=== PATIENT | female | born 1995 | race Caucasian/White ===

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

== ENCOUNTER 2017-01-27 19:56 | Emergency (ER) | payer OTHER ==
--- NOTE | 2017-01-27 21:15 | ED ORDER SUMMARY ---
..... Patient: NICK PACK OrderSheet [facility] VisitID: [id number] [place] [address] 21y, F Registration Date/Time: 01/27/2017 ORDER SHEET Weight: 74.8 kg (stated) Allergies: No Known Drug Allergy GENERAL ORDERS: CBC w Diff Urgent (20:14 01/27/2017 HBivens A.R.N.P.) (20:18 JRomanelli R.N.) CMP Urgent (20:14 01/27/2017 HBivens A.R.N.P.) (20:18 JRomanelli R.N.) UA-Culture if indicated Urgent (20:14 01/27/2017 HBivens A.R.N.P.) (Ack 20:18 CHategekimana) (20:28 JRomanelli R.N.) Urine Drug Screen Urgent (20:14 01/27/2017 HBivens A.R.N.P.) (Ack 20:18 CHategekimana) (20:29 JRomanelli R.N.) Lipase Urgent (20:14 01/27/2017 HBivens A.R.N.P.) (20:18 JRomanelli R.N.) Amylase Urgent (20:14 01/27/2017 HBivens A.R.N.P.) (20:18 JRomanelli R.N.) Urine Urgent (21:16 01/27/2017 HBivens A.R.N.P.) (Cancelled: Other21:16 HBivens A.R.N.P.) MEDICATION ORDERS: Zofran ODT PO 4 mg (NOW) (21:25 01/27/2017 LauraQuivedavy R.N. verbal order read back to HBivens A.R.N.P.) (21:25 Ginivey R.N.) IV FLUIDS: IV Saline Lock (20:14 01/27/2017 HBivens A.R.N.P.) (20:17 JRomanelli R.N.) ORDER SHEET NOTES: [Electronically signed by Moise Paris R.N. (21:27 01/27/2017)] [Electronically signed by Estrella Herring (22:00 01/27/2017)] [Electronically locked/signed by Moise Paris R.N. (21:27 01/27/2017)]
--- NOTE | 2017-01-27 21:15 | ED CLINICAL REPORT ---
Clinical Report - Physicians/Mid Levels [facility] [address] [place] [address] 01/27/2017 19:57 Patient: NICK PACK Time Seen: 20:01; initial patient contact, initial documentation, patient care assumed. Arrived- By private vehicle. Historian- patient. HISTORY OF PRESENT ILLNESS Chief Complaint: ABDOMINAL PAIN. At its maximum, severity described as severe. When seen in the E.D., severity described as moderate. Modifying factors. Not worsened by anything. Not relieved by anything. It is described as "pain" and it is described as located in the right abdomen. This started about 3 months ago and is still present. It has been intermittent. The patient has had nausea. No loss of appetite, vomiting or diarrhea. (pt admits to not taking her abx like she should). No recent travel. Similar symptoms previously: Frequently, worse. Recent medical care: The patient was seen recently in a clinic. 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 REVIEW OF SYSTEMS No constipation, black stools, hematemesis, difficulty with urination or pain with urination. No urinary frequency, missed periods, bloody stools, fever or chest pain. No difficulty breathing. Denies current . All systems otherwise negative, except as recorded above. PAST HISTORY See nurses notes. PROBLEMS: Gastritis. Gastroenteritis. Immunizations. --20:14 Moise Dover R.N. Pelvic Inflammatory Disease [RuleOut]. Abdominal Pain [RuleOut]. --20:14 Moise Dover R.N. ADDITIONAL SURGERIES: Dental Surgery. --20:14 Moise Dover R.N. SOCIAL HISTORY Smoker - current status unknown. No alcohol use or drug use. No recent travel. Is a local resident. FAMILY HISTORY Negative. ADDITIONAL NOTES The nursing notes have been reviewed with agreement regarding the chief complaint, HPI, ROS, PMH and patient medications and allergies. PHYSICAL EXAM Vital Signs: 01/27/2017 20:03 BP: 127/82. HR: 111. RR: 16. O2 saturation: 99%. Temp: 98.6 F. Pain level now: 03/08. Have been reviewed as abnormal and appear to be correct. Blood pressure normal. Tachycardic. Respiratory rate normal. Temperature normal. Oxygen saturation normal. Appearance: Alert. Oriented X3. No acute distress. (pt smells strongly of marijuana, and pt appears high). Eyes: Pupils equal, round and reactive to light. Eyes normal inspection. Neck: Normal inspection. Neck supple. CVS: Normal heart rate and rhythm. Heart sounds normal. Pulses normal. Respiratory: No respiratory distress. Breath sounds normal. Chest nontender. Abdomen: Soft and nontender. Bowel sounds normal. No organomegaly. No mass. Back: Normal inspection. Skin: Skin warm and dry. Normal skin color. No rash. Normal skin turgor. Extremities: Extremities exhibit normal ROM. No lower extremity edema. Neuro: Oriented X 3. No motor deficit. No sensory deficit. LABS, X-RAYS, AND EKG Laboratory Tests: UA-Culture if indicated: (ZULEIKA: 01/27/2017 20:20) ( MsgRcvd 01/27/2017 20:39) Final results Test Result Flag Units (Reference) URINE COLOR YELLOW URINE APPEARANCE CLEAR URINE GLUCOSE NEGATIVE (NEGATIVE) URINE BILIRUBIN NEGATIVE (NEGATIVE) URINE KETONE 1+ (NEGATIVE) URINE SPECIFIC GRAVITY >= 1.030 (1.010-1.030) URINE PH 5.5 (5.0-8.0) URINE PROTEIN NEGATIVE (NEGATIVE) URINE UROBILINOGEN 0.2 EU/dL (0.2-1.0) URINE NITRITE NEGATIVE (NEGATIVE) URINE BLOOD NEGATIVE (NEGATIVE) URINE LEUK ESTERASE NEGATIVE (NEGATIVE) URINE RBC NONE SEEN rbc/hpf (0-1) URINE WBC NONE SEEN wbc/hpf (0-1) URINE EPITHELIAL CELLS 3-5 EPI/hpf (0-5) URINE BACTERIA FEW (1+) (NONE SEEN) URINE COMMENT CULT NOT INDICATED 0-1 HYALINE CAST. 1+ MUCOUS.URINE CULTURES ARE SET-UP BASED ON THE FOLLOWING CRITERIA:POSITIVE NITRITEPOSITIVE LEUKOCYTE ESTERASEGREATER THAN 10 WHITE BLOOD CELLSMODERATE (2+) OR GREATER BACTERIA CBC w Diff: (ZULEIKA: 01/27/2017 20:10) ( MsgRcvd 01/27/2017 20:22) Final results Test Result Flag Units (Reference) WHITE BLOOD COUNT 7.3 K/uL (4.5-11.5) RED BLOOD COUNT 4.69 M/uL (4.00-5.20) HEMOGLOBIN 14.3 gm/dL (12.0-16.0) HEMATOCRIT 42.2 % (36.0-46.0) MEAN CELL VOLUME 90 fL (80-100) MEAN CORPUSCULAR HGB 31 pg (26-34) MEAN CORPUSCULAR HGB CONC 34 g/dL (31-37) RED CELL DISTRIBUTION WIDTH 13.1 % (11.6-14.8) PLATELET COUNT 234 K/uL (150-400) NEUTROPHIL % 74.1 % (50-75) LYMPH % 17.9 L % (25-40) MONO % 6.9 % (3-14) EOSINOPHIL % 0.4 % (0-4) BASOPHIL % 0.7 % (0-2) Urine Drug Screen: (ZULEIKA: 01/27/2017 20:20) ( MsgRcvd 01/27/2017 21:05) Final results Test Result Flag Units (Reference) AMPHETAMINE/METHAMPHETAMINE NEGATIVE (NEGATIVE) BARBITURATE NEGATIVE (NEGATIVE) BENZODIAZEPINE NEGATIVE (NEGATIVE) CANNABINOID POSITIVE H (NEGATIVE) COCAINE NEGATIVE (NEGATIVE) ECSTASY NEGATIVE (NEGATIVE) METHADONE NEGATIVE (NEGATIVE) OPIATE NEGATIVE (NEGATIVE) The urine drug screen is a qualitative screening test fordrug overdose and abuse. All screen results should beconsidered as presumptive.Drugs screened for are as follows:BenzodiazepinesCocaineAmphetamines/MetamphetaminesTHC (Tetrahydrocannabinol)OpiatesBarbituratesEcstasyMethadonePositive results are unconfirmed. For confirmation, notifythe lab for the specimen to be sent to the reference lab.All confirmations must be performed by a differentmethodology.The ingestion of natural herbal and plant productscontaining Ephedra/Ephedra metabolites can produce in urineone or more substances capable of cross reacting withamphetamine/methamphetamine immunoassays. These testsprovide a preliminary result only. A more specificalternative chemical method must be used to obtain aconfirmed analytical result. CMP: (ZULEIKA: 01/27/2017 20:10) ( MsgRcvd 01/27/2017 20:35) Final results Test Result Flag Units (Reference) GLUCOSE 94 mg/dL (70-110) BUN 14 mg/dL (7-18) CREATININE 0.8 mg/dL (0.6-1.3) Estimated GFR >60 mL/min Estimated GFR- >60 mL/min Note: Persistent reduction over 3 months in eGFR<60 mL/min/1.73 m2 defines CKD. Patients with eGFR values>=60 mL/min/1.73 m2 may also have CKD if evidence ofpersistent proteinuria. Additional information may be foundat www.kidney.org. SODIUM 137 mmol/L (136-145) POTASSIUM 3.5 mmol/L (3.5-5.1) CHLORIDE 103 mmol/L (98-107) CARBON DIOXIDE 26 mmol/L (21-32) CALCIUM 9.5 mg/dL (8.5-10.1) TOTAL PROTEIN 7.7 g/dL (6.4-8.2) ALBUMIN 4.1 g/dL (3.3-5.0) BILIRUBIN, TOTAL 0.4 mg/dL (0.0-1.0) ALKALINE PHOSPHATASE 65 U/L (46-116) AST (SGOT) 16 U/L (15-37) ALT (SGPT) 19 U/L (12-78) LIPASE 98 U/L (73-393) AMYLASE 36 U/L (25-115) . PROGRESS AND PROCEDURES Course of Care: records from clinic reviewed, wet mount and gc done, ua and hcg pt asking for abx for pid, request denied, informing pt that I would let the clinic take care of that since they were the ones who did the pelvic exam, wet mount and gc cx, encouraged pt to f/u with them. Patient counseled in person regarding the patient's stable condition, test results and diagnosis. 21:09. Differential Diagnosis: I considered gastritis, gastroenteritis, peptic ulcer disease, gastroesophageal reflux disease, acute appendicitis, diverticulitis, colon cancer, ulcerative colitis, Crohn's disease, biliary colic, cholecystitis, cholelithiasis, hepatitis, pancreatitis, common bile duct obstruction, urinary tract infection, cystitis, ureterolithiasis, ovarian cyst, , pelvic inflammatory disease, pelvic abscess, endometriosis and viral syndrome as a possible cause of abdominal pain in this patient. This is a partial list of diagnoses considered. (substance abuse). Above considerations are based on history, physical exam, reassessment and laboratory data. Differential diagnosis was discussed with patient. Disposition: Discharged home in good and unchanged condition (21:15). Condition: good and stable. CLINICAL IMPRESSION Acute right upper quadrant and right lower quadrant abdominal pain of undetermined cause. Substance abuse- marijuana with intoxication. INSTRUCTIONS Warnings: Further evaluation is necessary in order to obtain test results. It is very important to follow up with a physician. GENERAL WARNINGS: Return or contact your physician immediately if your condition worsens or changes unexpectedly, if not improving as expected, or if other problems arise. SPECIFICALLY, return if you develop pain in the abdomen, fever, the inability to keep fluids down, blood in vomitus, blood in diarrhea, fainting or lightheadedness. Follow-up: Follow up with your doctor in about two days even if well. Call for an appointment. Summary of care provided to patient. Understanding of the discharge instructions verbalized by patient. (Electronically signed by Estrella Herring A.R.N.P. 01/27/2017 22:00)
--- NOTE | 2017-01-27 21:15 | ED ORDER SUMMARY ---
..... Patient: NICK PACK OrderSheet [facility] VisitID: [id number] [place] [address] 21y, F Registration Date/Time: 01/27/2017 ORDER SHEET Weight: 74.8 kg (stated) Allergies: No Known Drug Allergy GENERAL ORDERS: CBC w Diff Urgent (20:14 01/27/2017 HBivens A.R.N.P.) (20:18 JRomanelli R.N.) CMP Urgent (20:14 01/27/2017 HBivens A.R.N.P.) (20:18 JRomanelli R.N.) UA-Culture if indicated Urgent (20:14 01/27/2017 HBivens A.R.N.P.) (Ack 20:18 CHategekimana) (20:28 JRomanelli R.N.) Urine Drug Screen Urgent (20:14 01/27/2017 HBivens A.R.N.P.) (Ack 20:18 CHategekimana) (20:29 JRomanelli R.N.) Lipase Urgent (20:14 01/27/2017 HBivens A.R.N.P.) (20:18 JRomanelli R.N.) Amylase Urgent (20:14 01/27/2017 HBivens A.R.N.P.) (20:18 JRomanelli R.N.) Urine Urgent (21:16 01/27/2017 HBivens A.R.N.P.) (Cancelled: Other21:16 HBivens A.R.N.P.) MEDICATION ORDERS: Zofran ODT PO 4 mg (NOW) (21:25 01/27/2017 LauraQuivedavy R.N. verbal order read back to HBivens A.R.N.P.) (21:25 Ginivey R.N.) IV FLUIDS: IV Saline Lock (20:14 01/27/2017 HBivens A.R.N.P.) (20:17 JRomanelli R.N.) ORDER SHEET NOTES: [Electronically signed by Moise Paris R.N. (21:27 01/27/2017)] [Electronically signed by Estrella Herring (22:00 01/27/2017)] [Electronically locked/signed by Moise Paris R.N. (21:27 01/27/2017)]
--- NOTE | 2017-01-27 21:15 | ED NURSING NOTES ---
Clinical Report - Nurses [facility] [address] [place] [address] 01/27/2017 19:57 Patient: NICK PACK TRIAGE Triage time 20:Jan 27 2017. Acuity: LEVEL 3. Chief Complaint: ABDOMINAL PAIN and NAUSEA. Alert. NORMA COMA SCORE: [place] Coma Scale: 15- eyes open spontaneously (4); best verbal response- oriented x 4 (5); best motor response- obeys commands (6). --20:15 Moise Dover R.N. 20:03 01/27/17. BP: 127/82. HR: 111. RR: 16. O2 saturation: 99% on room air. Temp: 98.6 F. Pain level now: 6/10. Additional comments: RLQ. --20:15 Moise Dover R.N. Weight: 74.8 kg stated. Height/Length: 67 inches Per Patient. BMI: 25.9. Growth Chart Percentile: Weight: 90.3%. Height/Length: 85.5%. --20:10 Moise Dover R.N. Medications Doxycycline Calcium Oral 100mg, every 12 hours. --20:12 Moise Dover R.N. Ibuprofen Oral, as needed. --20:13 Moise Dover R.N. Allergies No Known Drug Allergy. --20:13 Moise Dover R.N. Medication/allergy information source: the patient. --20:15 Moise Dover R.N. History Arrived by private vehicle. Historian: patient. ( RLQ Abdominal pain. Seen today at [facility] and told to come here and be seen for a possible appendicitis. She has been having a PID for the last 2 1/2 months and only taking her antibiotics intermittently.). Onset. (about 2 1/2 months ago). She has had abdominal pain. The pain is described as located in the RLQ. Last oral intake by patient was (about 7 hours ago). Treatment ADMISSIONS CONSULTANT: None. PAST MEDICAL HX: Immunizations: status is unknown. Denies current : confirmed with urine test. SOCIAL HX: Former smoker, end date 12/2016. No alcohol use or drug use. No infectious disease exposure. No known contact with a sick individual. ABUSE ASSESSMENT: No report of abuse. FALL RISK ASSESSMENT: Fall risk assessment completed. No fall risk identified. NUTRITIONAL RISK ASSESSMENT: The nutritional risk assessment revealed no deficiencies. FUNCTIONAL ASSESSMENT: Functional assessment: no impairments noted. LEARNING NEEDS ASSESSMENT: The learning needs assessment revealed no barriers. SKIN INTEGRITY ASSESSMENT: Skin integrity risk assessment completed. No skin integrity risk identified. --20:15 Moise Dover R.N. PROBLEMS: Gastritis. Gastroenteritis. Immunizations. --20:14 Moise Dover R.N. Pelvic Inflammatory Disease [RuleOut]. Abdominal Pain [RuleOut]. --20:14 Moise Dover R.N. ADDITIONAL SURGERIES: Dental Surgery. --20:14 Moise Dover R.N. Interventions ID band on patient. To room. --20:15 Moise Dover R.N. PHYSICAL ASSESSMENT Ambulatory to room. GENERAL / NEURO / PSYCH: Alert. Oriented X 4. HEENT: Mucous membranes are pink. RESPIRATORY: Respirations not labored. CVS: Cardiac rhythm: sinus tachycardia. Capillary refill less than 2 seconds. GI / : Abdomen soft. Abdominal tenderness in the right lower quadrant. SKIN: Skin is warm and dry. --20:16 Moise Dover R.N. NURSING PROGRESS NOTES Patient gowned. Reassurance given to the patient. Patient identifiers checked. Call light placed in reach. Side rails up. Bed placed in lowest position. Brakes of bed on. Patient ready for evaluation- chart flagged and ED physician notified. --20:17 Moise Dover R.N. 20:07 01/27/2017 Site #1 started via IV in the left wrist with an 20g angiocath, with aseptic technique and good blood return; one attempt. Blood drawn: rainbow set. Labeled in the presence of the patient and sent to the lab. Saline lock flushed with 10 mL saline (start by DAVID Thorpe). --20:17 Moise Dover R.N. 20:23 01/27/17. Checked patient name, birthdate and medical record number: patient confirmed. Instructions provided to collect clean catch urine and patient verbalized understanding. Clean catch urine collected with return of yellow-colored lana-colored clear urine; odor is normal; sample sent to lab for urinalysis, culture and HCG. Specimen labeled in the presence of the patient. --20:23 Moise Dover R.N. 21:22 01/27/2017 Zofran ODT (Ondansetron) PO 4 mg given. Allergies verified and confirmed 5 rights. --21:25 Moise Paris R.N. 21:20. The patient is calm and resting quietly. SKIN: Skin is warm and dry. Skin color within normal limits. --21:27 Moise Paris R.N. DISPOSITION / DISCHARGE 21:13 01/27/2017 Site #1 removed upon discharge. Catheter intact. Bandage applied. --21:13 Moise Paris R.N. Departure time: 21:25. Condition at departure: stable. No learning barriers present. Discharge instructions provided and reviewed with the patient. Patient verbalized understanding. Written instructions provided in Irish. The patient was discharged home and accompanied by logistics engineer. She left the Emergency Department ambulatory and via private vehicle. Veterinary Pathologist driving. FALL RISK ASSESSMENT: Fall risk assessment completed. No fall risk identified. --21:25 Moise Paris R.N. 21:11 01/27/17. BP: 134/96. HR: 98. RR: 16. O2 saturation: 98% on room air. Pain level now: 10. --21:25 Moise Paris R.N. Locked/Released at 01/27/2017 21:27 by Moise Paris R.N.
--- NOTE | 2017-01-27 21:15 | ED NURSING NOTES ---
Clinical Report - Nurses [facility] [address] [place] [address] 01/27/2017 19:57 Patient: NICK PACK TRIAGE Triage time 20:Jan 27 2017. Acuity: LEVEL 3. Chief Complaint: ABDOMINAL PAIN and NAUSEA. Alert. NORMA COMA SCORE: [place] Coma Scale: 15- eyes open spontaneously (4); best verbal response- oriented x 4 (5); best motor response- obeys commands (6). --20:15 Moise Dover R.N. 20:03 01/27/17. BP: 127/82. HR: 111. RR: 16. O2 saturation: 99% on room air. Temp: 98.6 F. Pain level now: 6/10. Additional comments: RLQ. --20:15 Moise Dover R.N. Weight: 74.8 kg stated. Height/Length: 67 inches Per Patient. BMI: 25.9. Growth Chart Percentile: Weight: 90.3%. Height/Length: 85.5%. --20:10 Moise Dover R.N. Medications Doxycycline Calcium Oral 100mg, every 12 hours. --20:12 Moise Dover R.N. Ibuprofen Oral, as needed. --20:13 Moise Dover R.N. Allergies No Known Drug Allergy. --20:13 Moise Dover R.N. Medication/allergy information source: the patient. --20:15 Moise Dover R.N. History Arrived by private vehicle. Historian: patient. ( RLQ Abdominal pain. Seen today at [facility] and told to come here and be seen for a possible appendicitis. She has been having a PID for the last 2 1/2 months and only taking her antibiotics intermittently.). Onset. (about 2 1/2 months ago). She has had abdominal pain. The pain is described as located in the RLQ. Last oral intake by patient was (about 7 hours ago). Treatment BREAKDOWN MAN: None. PAST MEDICAL HX: Immunizations: status is unknown. Denies current : confirmed with urine test. SOCIAL HX: Former smoker, end date 12/2016. No alcohol use or drug use. No infectious disease exposure. No known contact with a sick individual. ABUSE ASSESSMENT: No report of abuse. FALL RISK ASSESSMENT: Fall risk assessment completed. No fall risk identified. NUTRITIONAL RISK ASSESSMENT: The nutritional risk assessment revealed no deficiencies. FUNCTIONAL ASSESSMENT: Functional assessment: no impairments noted. LEARNING NEEDS ASSESSMENT: The learning needs assessment revealed no barriers. SKIN INTEGRITY ASSESSMENT: Skin integrity risk assessment completed. No skin integrity risk identified. --20:15 Moise Dover R.N. PROBLEMS: Gastritis. Gastroenteritis. Immunizations. --20:14 Moise Dover R.N. Pelvic Inflammatory Disease [RuleOut]. Abdominal Pain [RuleOut]. --20:14 Moise Dover R.N. ADDITIONAL SURGERIES: Dental Surgery. --20:14 Moise Dover R.N. Interventions ID band on patient. To room. --20:15 Moise Dover R.N. PHYSICAL ASSESSMENT Ambulatory to room. GENERAL / NEURO / PSYCH: Alert. Oriented X 4. HEENT: Mucous membranes are pink. RESPIRATORY: Respirations not labored. CVS: Cardiac rhythm: sinus tachycardia. Capillary refill less than 2 seconds. GI / : Abdomen soft. Abdominal tenderness in the right lower quadrant. SKIN: Skin is warm and dry. --20:16 Moise Dover R.N. NURSING PROGRESS NOTES Patient gowned. Reassurance given to the patient. Patient identifiers checked. Call light placed in reach. Side rails up. Bed placed in lowest position. Brakes of bed on. Patient ready for evaluation- chart flagged and ED physician notified. --20:17 Moise Dover R.N. 20:07 01/27/2017 Site #1 started via IV in the left wrist with an 20g angiocath, with aseptic technique and good blood return; one attempt. Blood drawn: rainbow set. Labeled in the presence of the patient and sent to the lab. Saline lock flushed with 10 mL saline (start by DAVID Thorpe). --20:17 Moise Dover R.N. 20:23 01/27/17. Checked patient name, birthdate and medical record number: patient confirmed. Instructions provided to collect clean catch urine and patient verbalized understanding. Clean catch urine collected with return of yellow-colored lana-colored clear urine; odor is normal; sample sent to lab for urinalysis, culture and HCG. Specimen labeled in the presence of the patient. --20:23 Moise Dover R.N. 21:22 01/27/2017 Zofran ODT (Ondansetron) PO 4 mg given. Allergies verified and confirmed 5 rights. --21:25 Moise Paris R.N. 21:20. The patient is calm and resting quietly. SKIN: Skin is warm and dry. Skin color within normal limits. --21:27 Moise Paris R.N. DISPOSITION / DISCHARGE 21:13 01/27/2017 Site #1 removed upon discharge. Catheter intact. Bandage applied. --21:13 Moise Paris R.N. Departure time: 21:25. Condition at departure: stable. No learning barriers present. Discharge instructions provided and reviewed with the patient. Patient verbalized understanding. Written instructions provided in Yakut. The patient was discharged home and accompanied by supervisor ditching. She left the Emergency Department ambulatory and via private vehicle. Import/Export Clerk driving. FALL RISK ASSESSMENT: Fall risk assessment completed. No fall risk identified. --21:25 Moise Paris R.N. 21:11 01/27/17. BP: 134/96. HR: 98. RR: 16. O2 saturation: 98% on room air. Pain level now: 10. --21:25 Moise Paris R.N. Locked/Released at 01/27/2017 21:27 by Moise Paris R.N.
--- NOTE | 2017-01-27 22:01 | ED MAR SUMMARY ---
..... Medication Administration Record [facility] [address] [place] [address] Patient: NICK PACK Visit ID: [id number] 21y, F Weight: 74.8 kg Height/Length: 67 in BMI: 25.9 ALLERGIES: No Known Drug Allergy Given 21:22 01/27/2017 Moise Paris RNaunNNaun Medication Administered: ZOFRAN ODT [PO] (ONDANSETRON), Dose: 4 mg PO. Medication Ordered: Zofran ODT PO 4 mg (NOW).
--- NOTE | 2017-01-27 22:01 | ED MED RECONCILIATION SUMMARY ---
Patient: NICK PACK Medication Reconciliation Report [facility] VisitID: [id number] [address] [place] [address] 21y, F Registration Date/Time: 01/27/2017 Weight: 74.8 kg Height/Length: 67 in. BMI: 25.9 ALLERGIES: No Known Drug Allergy The patient's Home Medications are listed below: THE FOLLOWING MEDICATIONS NEED TO BE RECONCILED: Doxycycline Calcium Oral 100mg, every 12 hours Ibuprofen Oral The source(s) of the original Home Medication information: patient The following Medications were given to the patient in the Emergency Department: Zofran ODT [PO] PO 4 mg, administered: 01/27/2017 9:22:00 PM The following Medications were prescribed to the patient: None.
--- NOTE | 2017-01-27 22:01 | ED MED RECONCILIATION SUMMARY ---
Patient: NICK PACK Medication Reconciliation Report [facility] VisitID: [id number] [address] [place] [address] 21y, F Registration Date/Time: 01/27/2017 Weight: 74.8 kg Height/Length: 67 in. BMI: 25.9 ALLERGIES: No Known Drug Allergy The patient's Home Medications are listed below: THE FOLLOWING MEDICATIONS NEED TO BE RECONCILED: Doxycycline Calcium Oral 100mg, every 12 hours Ibuprofen Oral The source(s) of the original Home Medication information: patient The following Medications were given to the patient in the Emergency Department: Zofran ODT [PO] PO 4 mg, administered: 01/27/2017 9:22:00 PM The following Medications were prescribed to the patient: None.
--- NOTE | 2017-01-27 22:01 | ED DISCHARGE INSTRUCTIONS ---
Patient: NICK PACK General Instructions [facility] VisitID: [id number] [place] [address] 21y, F Registration Date/Time: 01/27/2017 Acute right upper quadrant and right lower quadrant abdominal pain of undetermined cause. Substance abuse- marijuana with intoxication. INSTRUCTIONS Warnings: Further evaluation is necessary in order to obtain test results. It is very important to follow up with a physician. GENERAL WARNINGS: Return or contact your physician immediately if your condition worsens or changes unexpectedly, if not improving as expected, or if other problems arise. SPECIFICALLY, return if you develop pain in the abdomen, fever, the inability to keep fluids down, blood in vomitus, blood in diarrhea, fainting or lightheadedness. Follow-up: Follow up with your doctor in about two days even if well. Call for an appointment. Summary of care provided to patient. Understanding of the discharge instructions verbalized by patient. ADDITIONAL INFORMATION Abdominal Pain, Unknown Cause (Female) The exact cause of your abdominal (stomach) pain is not certain. This does not mean that this is something to worry about, or the right tests were not done. Everyone likes to know the exact cause of the problem, but sometimes with abdominal pain, there is no clear-cut cause, and this could be a good thing. The good news is that your symptoms can be treated, and you will feel better. Your condition does not seem serious now; however, sometimes the signs of a serious problem may take more time to appear. For this reason,it is important for you to watch for any new symptoms, problems,or worsening of your condition. Over the next few days, the abdominal pain may come and go, or be continuous. Other common symptoms can include nausea and vomiting. Sometimes it can be difficult to tell if you feel nauseous, you may just feel bad and not associate that feeling with nausea. Constipation, diarrhea, and a fever may go along with the pain. The pain may continue even if treated correctly over the following days. Depending on how things go, sometimes the cause can become clear and may require further or different treatment. Additional evaluations, medications, or tests may be needed. Home care Your health care provider may prescribe medications for pain, symptoms, or an infection. Follow the health care provider's instructions for taking these medications. General care Rest until your next exam. No strenuous activities. Try to find positions that ease discomfort. A small pillow placed on the abdomen may help relieve pain. Something warm on your abdomen (such as a heating pad) may help, but be careful not to burn yourself. Diet Do not force yourself to eat, especially if having cramps, vomiting, or diarrhea. Water is important so you do not get dehydrated. Soup may also be good. Sports drinks may also help, especially if they are not too acidic. Make sure you don't drink sugary drinks as this can make things worse. Take liquids in small amounts. Do not guzzle them. Caffeine sometimes makes the pain and cramping worse. Avoid dairy products if you have vomiting or diarrhea. Don't eat large amounts at a time. Wait a few minutes between bites. Eat a diet low in fiber (called a low-residue diet). Foods allowed include refined breads, white rice, fruit and vegetable juices without pulp, tender meats. These foods will pass more easily through the intestine. Avoid whole-grain foods, whole fruits and vegetables, meats, seeds and nuts, fried or fatty foods, dairy, alcohol and spicy foods until your symptoms go away. Follow-up care Follow up with your health care provider as instructed, or if your pain does not begin to improve in the next 24 hours. When to seek medical care Seek prompt medical care if any of the following occur: Pain gets worse or moves to the right lower abdomen New or worsening vomiting or diarrhea Swelling of the abdomen Unable to pass stool for more than three days Fever of 100.4F (38C) or higher, or as directed by your healthcare provider. Blood in vomit or bowel movements (dark red or black color) Jaundice (yellow color of eyes and skin) Weakness, dizziness Chest, arm, back, neck or jaw pain Unexpected vaginal bleeding or missed period Call 911 Call emergency services if any of the following occur: Trouble breathing Confusion Fainting or loss of consciousness Rapid heart rate Seizure Abdominal Pain,Possible Appendicitis [Repeat Exam, Female] Based on your visit today, the exact cause of your abdominal (stomach) pain is not certain. However, you do have some of the early signs of APPENDICITIS. Early in an appendix infection the symptoms can be similar to a simple "stomach ache" or "stomach flu". Therefore, the diagnosis can be hard to make. Since an appendix infection is a serious condition, it is important to know if this is the cause of your symptoms. WAITING for more time to pass and repeating the exam is the best way to find out whether you have appendicitis. Within the next 12-24 hours the cause of your stomach pain should become clear. It is important for you to watch for any new symptoms or worsening of your condition. (See below). Home Care: Rest until your next exam. No strenuous activities. Eat a diet low in fiber (called a low-residue diet). Foods allowed include refined breads, white rice, fruit and vegetable juices without pulp, tender meats. These foods will pass more easily through the intestine. Avoid whole-grain foods, whole fruits and vegetables, meats, seeds and nuts, fried or fatty foods, dairy, alcohol and spicy foods until your symptoms go away. In some cases, you may be asked not to eat or drink anything until you are re-examined. Return for another exam exactly as directed. Follow Up with your doctor or this facility as directed. Get Prompt Medical Attention if any of the following occur: Pain gets worse or moves to the right lower abdomen New or worsening vomiting or diarrhea Swelling of the abdomen Unable to pass stool for more than three days Fever of 100.4F (38C) or higher, or as directed by your healthcare provider Blood in vomit or bowel movements (dark red or black color) Weakness, dizziness or fainting Unexpected vaginal bleeding Marijuana Abuse Marijuana is the most widely used illegal drug in the [place]. It is called by various names such as pot, weed, blunts, grass, reefer, ganja, hash, hashish. It is usually smoked but can be mixed with foods or brewed as a tea. It is sometimes sold with PCP (Rodney Dust) or amphetamine mixed in it. These drugs can cause other harmful side effects. Marijuana can cause the following effects: Changes in mood (stimulated, happy, drowsy, depressed, paranoid) Hallucinations Increased heart rate and blood pressure Increased appetite Time distortion, difficulty concentrating, impaired memory Lung damage (similar to cigarettes with chronic cough, wheezing, frequent colds and bronchitis) You can become psychologically dependent on marijuana. That means the craving to use the drug is emotional or psychological rather than due to physical withdrawal. Is Marijuana Running Your Life? Here are some of the signs: Relying on marijuana to feel good, forget problems, deal with stress or to relax Wanting to be alone most of the time or only with others who use drugs Losing interest in things that used to be important Changes in school or job performance or attendance Spending a lot of time thinking about how to get marijuana Stealing or selling your things so you can buy marijuana Unable to stop using even though you may want to quit Increasing anxiety, anger,or depression Sleeping too much, changes in eating habits (weight loss or gain) Needing to use more to get the same effect Home Care Once you have become addicted to any drug, quitting is hard to do. Most people find they can't quit without help. So, dont try to do this alone. Talk to someone you trust who can support you. Seek professional help. Avoid people and places where drugs are used. That only increases the temptation to use. Follow Up with your doctor or as advised by our staff. For more information or a referral to a treatment center in your area, contact: Your local mental health center or the National Alcohol and Substance Abuse Information Center (976)-601-5323 www.addictioncareoptions.com National [place] on Alcoholism and Drug Dependence 611-825-CFUV www.ncadd.org Marijuana Anonymous 007-815-9804 www.marijuana-anonymous.org Get Prompt Medical Attention if any of the following occur: You feel extreme depression, fear, anxiety, or anger toward yourself or others You feel out of control You feel that you may try to harm yourself or another You have been given the following additional information: Abdominal Pain, Unknown Cause, (Female) Abdominal Pain, Possible Appendicitis (Female) Marijuana Abuse (Electronically signed by Estrella Herring A.R.N.P. 01/27/2017 22:00)
--- NOTE | 2017-01-27 22:01 | ED MAR SUMMARY ---
..... Medication Administration Record [facility] [address] [place] [address] Patient: NICK PACK Visit ID: [id number] 21y, F Weight: 74.8 kg Height/Length: 67 in BMI: 25.9 ALLERGIES: No Known Drug Allergy Given 21:22 01/27/2017 Moise Paris RNaunNNaun Medication Administered: ZOFRAN ODT [PO] (ONDANSETRON), Dose: 4 mg PO. Medication Ordered: Zofran ODT PO 4 mg (NOW).
== END 2017-01-27 21:25 | disposition home or self-care (01) ==
LOC: ED SRH 19:56
DX: R10.11 Right upper quadrant pain (principal); R10.31 Right lower quadrant pain; F12.10 Cannabis abuse, uncomplicated
CPT/HCPCS: 90004; 90100; 92235; 92530; 92760; 92761; 92762; 92763; 92764; 92765; 92766; 92767; 95059

== ENCOUNTER 2017-03-03 10:02 | Outpatient (CLI) | payer OTHER ==
--- NOTE | 2017-03-03 11:35 | DIAGNOSTIC IMAGING REPORT ---
PROCEDURE: US COMPLETE PELVIC W/TRANSVAG INDICATION: PELVIC PAIN TECHNIQUE: Transabdominal and endovaginal neal scale and color Doppler sonographic images of the female pelvis were obtained. COMPARISON: Abdominal ultrasound 11/07/2016 FINDINGS: TRANSABDOMINAL SCANS: The uterus is of normal size 4.8 x 3.3 x 4.7 cm Kidneys are normal. TRANSVAGINAL SCANS: The uterus is anteverted. Myometrium is normal. The endometrium measures 11 mm. Right ovary is normal measuring 4 x 2.4 x 3.3 cm. There is a a follicular cyst on the right ovary that measures 1.9 x 1.8 x 1.2 cm. The left ovary is normal measuring 3 x 2.8 x 2 cm Arterial and venous flow was visualized in both ovaries. IMPRESSION: 1. Normal uterus and ovaries and kidneys. 2. 19 mm follicle right ovary.
== END 2017-03-03 23:00 ==
LOC: US SRH 10:02
DX: R10.2 Pelvic and perineal pain (principal)